=== PATIENT | male | born 1960 | race African-American/Black ===

== ENCOUNTER 2018-07-17 17:06 | Inpatient (IN) | payer OTHER ==
[2018-07-17 21:16] VITALS: BMI 21.1
--- NOTE | 2018-07-17 22:09 | HP ---
COWS - Scale Resting Pulse: 0= NV 80 or Below Sweatin=Flushed/Facial Moisture Restless Observation: 1= Difficult to Sit Still Pupil Size: 1= Pupils >than Normal Bone or Joint Aches: 2= Severe Diffuse Aches Runny Nose/ Eye Tearin= Runny Nose/Eyes GI Upset > 30mins: 2= Nausea/Diarrhea Tremor Observation: 2= Slight Tremor Visible Yawning Observation: 1= 1-2x During Session Anxiety or Irritability: 1=Feels Anxious/Irritable Goose Flesh Skin: 0=Smooth Skin COWS Score: 14 CIWA Score Nausea/Vomitin Muscle Tremors: 2 Anxiety: 2 Agitation: 2 Paroxysmal Sweats: 3 Orientation: 0-Oriented Tacttile Disturbances: 2-Mild Itch/Numbness/Burn Auditory Disturbances: 2-Mild Harshness/Frighten Visual Disturbances: 2-Mild Sensitivity Headache: 2-Mild CIWA-Ar Total Score: 20 - Admission Criteria OASAS Guidelines: Admission for Medically Managed Detox: Requires at least one of the followin. CIWA greater than 12 2. Seizures within the past 24 hours 3. Delirium tremens within the past 24 hours 4. Hallucinations within the past 24 hours 5. Acute intervention needed for co occurring medical disorder 6. Acute intervention needed for co occurring psychiatric disorder 7. Severe withdrawal that cannot be handled at a lower level of care (continued vomiting, continued diarrhea, abnormal vital signs) requiring intravenous medication and/or fluids 8. Admission ROS BHS - HPI Chief Complaint: DEPENDENT ON HEROIN AND ETOH ON 50 MGS. MMTP - LAST DOSE WAS 07/15/2018 Allergies/Adverse Reactions: Allergies Allergy/AdvReac Type Severity Reaction Status Date / Time No Known Allergies Allergy Verified 06/03/14 17:22 History of Present Illness: THE PT. WAS SENT FROM [facility]. FOR ADMISSION TO THE DETOX UNIT Exam Limitations: No Limitations - Ebola screening Have you traveled outside of the country in the last 21 days: No (N) Have you had contact with anyone from an Ebola affected area: No Have you been sick,other than usual withdrawal symptoms: No Do you have a fever: No - Review of Systems Constitutional: See HPI, Loss of Appetite, Malaise EENT: reports: See HPI Respiratory: reports: See HPI Cardiac: reports: See HPI GI: reports: See HPI, Diarrhea, Nausea, Poor Appetite, Indigestion, Abdominal cramping : reports: See HPI Musculoskeletal: reports: See HPI, Muscle Pain, Muscle Weakness Integumentary: reports: See HPI, Sweating Neuro: reports: See HPI, Headache, Tremors, Weakness Endocrine: reports: See HPI Hematology: reports: See HPI Psychiatric: reports: Judgement Intact, Orientated x3, Anxious, Depressed Patient History - Patient Medical History Hx Anemia: No Hx Asthma: Yes (currently on treatment) Hx Chronic Obstructive Pulmonary Disease (COPD): No Hx Cancer: No Hx Cardiac Disorders: No Hx Hypertension: Yes Hx Hypercholesterolemia: No Hx Pacemaker: No HX Cerebrovascular Accident: No Hx Seizures: No Hx Dementia: No Hx Diabetes: No Hx Gastrointestinal Disorders: No Hx Liver Disease: No Hx Genitourinary Disorders: No Hx Sexually Transmitted Disorders: No Hx Renal Disease (ESRD): No Hx Thyroid Disease: No Hx Human Immunodeficiency Virus (HIV): No (NEGATIVE HX) Hx Hepatitis C: No Hx Depression: Yes (AND ANXIETY) Hx Suicide Attempt: No (DENIES) Hx Schizophrenia: No - Patient Surgical History Past Surgical History: Yes Hx Neurologic Surgery: No Hx Cataract Extraction: No Hx Cardiac Surgery: No Hx Lung Surgery: No Hx Breast Surgery: No Hx Breast Biopsy: No Hx Abdominal Surgery: No Hx Appendectomy: No Hx Cholecystectomy: No Hx Genitourinary Surgery: No Hx Section: No Hx Orthopedic Surgery: Yes (L elbow fracture 02/2012) Anesthesia Reaction: No - Smoking Cessation Smoking history: Current every day smoker Have you smoked in the past 12 months: Yes Aproximately how many cigarettes per day: 10 Hx Chewing Tobacco Use: No Initiated information on smoking cessation: Yes 'Breaking Loose' booklet given: 07/17/18 - Substance & Tx. History Hx Alcohol Use: Yes Hx Substance Use: Yes Substance Use Type: Alcohol, Heroin Hx Substance Use Treatment: Yes - Substances abused Alcohol Substance route: Oral Frequency: Daily Amount used: VODKA 3 pints DAILY/BEER 2X16 OZS ON ALT. DAY Age of first use: 15 Date of last use: 07/17/18 Heroin Substance route: Inhalation Frequency: Daily Amount used: 5 bags Age of first use: 17 Date of last use: 07/17/18 Family Disease History - Family Disease History Family Disease History: Heart Disease: Mother ( FROM [place] WAS DEPENDENT ONE ETOH) Admission Physical Exam BHS - Vital Signs Vital Signs: Vital Signs - 24 hr 07/17/18 20:58 Temperature 97.4 F L Pulse Rate 76 Respiratory 18 Rate Blood Pressure 156/83 - Physical General Appearance: Yes: No Apparent Distress, Appropriately Dressed, Thin, Tremorous, Sweating, Anxious HEENTM: Yes: Hearing grossly Normal, Normocephalic, Normal Voice, DINESH, Pharynx Normal Respiratory: Yes: Chest Non-Tender, Lungs Clear, Normal Breath Sounds, No Respiratory Distress, No Accessory Muscle Use Neck: Yes: No masses,lesions,Nodules, Supple, Trachea in good position Breast: Yes: Axillae without masses Cardiology: Yes: Regular Rhythm, Regular Rate, S1, S2 Abdominal: Yes: Normal Bowel Sounds, Non Tender, Soft Musculoskeletal: Yes: full range of Motion, Muscle Pain, Muscle weakness Extremities: Yes: Normal Capillary Refill, Normal Range of Motion, Non-Tender, Tremors, Swelling Neurological: Yes: cashier receptionist II-XII NML intact, Fully Oriented, Alert, Motor Strength 5/5, Normal Response, Depressed Affect Integumentary: Yes: Warm, Moist, Pitting Edema Lymphatic: Yes: Within Normal Limits - Diagnostic (1) Heroin dependence Current Visit: Yes Status: Chronic (2) HTN (hypertension) Current Visit: Yes Status: Acute (3) Asthma Current Visit: Yes Status: Chronic (4) Anxiety and depression Current Visit: Yes Status: Chronic (5) Nicotine dependence Current Visit: No Status: Chronic (6) Methadone maintenance therapy patient Current Visit: Yes Status: Chronic (7) Alcohol dependence Current Visit: No Status: Chronic Qualifiers: Substance use status: uncomplicated Qualified Code(s): F10.20 - Alcohol dependence, uncomplicated (8) Nicotine dependence Current Visit: Yes Status: Acute Qualifiers: Nicotine product type: cigarettes Substance use status: uncomplicated Qualified Code(s): F17.210 - Nicotine dependence, cigarettes, uncomplicated Cleared for Admission [facility] - Detox or Rehab [facility] Level of Care: Medically Managed Detox Regimen/Protocol: Librium Urine Drug Screen - Control Is test valid?: Yes Inpatient Rehab Admission - Rehab Decision to Admit Inpatient rehab admission?: No
[2018-07-17] MEDS ORDERED: MAGNESIUM CITRATE 300 ML BOTTLE PO PRN (22:21)
[2018-07-17] MEDS ORDERED: IBUPROFEN 400 MG TABLET (FP) PO PRN (22:21)
[2018-07-17] MEDS ORDERED: MENTHOL/PHENOL 1 EACH UD MM PRN (22:21)
[2018-07-17] MEDS ORDERED: METHOCARBAMOL 500 MG TABLET PO PRN (22:21)
[2018-07-17] MEDS ORDERED: MELATONIN 5 MG TABLETS PO PRN (22:21)
[2018-07-17] MEDS ORDERED: ACETAMINOPHEN 325 MG TABLET (FP) PO PRN ×2 (22:21)
[2018-07-17] MEDS ORDERED: BISMUTH SUBSALICYLATE 524 MG/30 ML UD PO PRN (22:21)
[2018-07-17] MEDS ORDERED: chlordiazePOXIDE HCL 25 MG CAPSULE PO ONE (22:21)
[2018-07-17] MEDS ORDERED: chlordiazePOXIDE HCL 25 MG CAPSULE PO PRN (22:21)
[2018-07-17] MEDS ORDERED: hydrOXYzine PAMOATE 25 MG CAPSULE (FP) PO PRN (22:21)
[2018-07-17] MEDS ORDERED: MAGNESIUM HYDROX 2400MG/30ML ORAL SUSPENSION 30 ML CUP PO PRN (22:21)
[2018-07-17] MEDS ORDERED: MAG HYDROX/AL HYDROX/SIMETH 30 ML UNIT-DOSE CUP PO PRN (22:21)
[2018-07-17] MEDS ORDERED: ALBUTEROL SO4 8 GM HFA INHALER IH PRN (22:25)
[2018-07-17] MEDS ORDERED: cloNIDine HCL 0.1 MG TABLET PO PRN (22:26)
[2018-07-18] MEDS: chlordiazePOXIDE HCL 25 MG CAPSULE PO SCH ×5 (00:05→22:13)
[2018-07-18] MEDS: HYDROCHLOROTHIAZIDE 25 MG TABLET (FP) PO SCH ×2 (00:05→10:32)
[2018-07-18] MEDS ORDERED: METHADONE HCL 10 MG TABLET PO SCH (07:45)
--- NOTE | 2018-07-18 09:17 | PN ---
S CIWA - CIWA Score Nausea/Vomitin-Mild Nausea/No Vomiting Muscle Tremors: 4-Moderate,w/Arms Extend Anxiety: 4-Mod. Anxious/Guarded Agitation: 4-Moderately Restless Paroxysmal Sweats: 1-Minimal Palms Moist Orientation: 1-Uncertain about Date Tacttile Disturbances: 0-None Auditory Disturbances: 0-None Visual Disturbances: 0-None Headache: 0-None Present CIWA-Ar Total Score: 15 BHS Progress Note (SOAP) Subjective: patient is in the methadone maintenance program at 50 mg po daily last dose 07/14/18 upon admission methadone urine positive as negative to heroin and opiate discuss with the patient who wants to return to methadone program agrees incremental methadone to 50 mg Objective: 07/18/18 10:27 Vital Signs Temperature 99.2 F 07/18/18 09:19 Pulse Rate 97 H 07/18/18 09:19 Respiratory Rate 18 07/18/18 09:19 Blood Pressure 115/68 07/18/18 09:19 O2 Sat by Pulse Oximetry (%) lab pending Assessment: 07/18/18 10:28 alcohol withdrawal sx Plan: continue detox
[2018-07-18] MEDS ORDERED: METHADONE HCL 10 MG TABLET PO ONE (10:00)
[2018-07-18] MEDS: PRENATAL VITAMINS W/ FOLIC ACID TABLET (FP) PO SCH (10:32)
[2018-07-18] MEDS: NICOTINE 14 MG/24 HOURS TOPICAL PATCH TD SCH (10:33)
[2018-07-18 10:47] LABS: HEMATOCRIT 34.8 % (35.4-49); HEMOGLOBIN 11.8 GM/dL (11.7-16.9); MCHC 33.9 g/dl (32.0-35.9); MEAN CELL VOLUME 100.3 fl (80-96); MEAN PLT VOLUME 8.8 fl (7.5-11.1); PLATELET COUNT 141 K/MM3 (134-434); RBC 3.47 M/mm3 (4.00-5.60); WHITE BLOOD COUNT 7.9 K/mm3 (4.0-10.0)
[2018-07-18 10:55] LABS: ALBUMIN 2.6 g/dl (3.4-5.0); ALK PHOS 137 U/L (45-117); ANION GAP 7 MMOL/L (8-16); BILIRUBIN,TOTAL 0.8 mg/dL (0.2-1); BLOOD UREA NITROGEN 14 mg/dL (7-18); CALCIUM 8.7 mg/dL (8.5-10.1); CHLORIDE 97 mmol/L (98-107); CO2 33 mmol/L (21-32); CREATININE 0.7 mg/dL (0.55-1.3); GLUCOSE,RANDOM 120 mg/dL (74-106); POTASSIUM 3.1 mmol/L (3.5-5.1); SGOT/AST 48 U/L (15-37); SGPT/ALT 29 U/L (13-61); SODIUM 137 mmol/L (136-145); TOT PROT 7.2 g/dl (6.4-8.2)
[2018-07-18] MEDS: PENICILLIN V POTASSIUM 500 MG TABLET PO SCH ×2 (13:05→22:13)
[2018-07-18] MEDS ORDERED: PENICILLIN V POTASSIUM 250 MG TABLET PO SCH (14:00)
--- NOTE | 2018-07-18 14:10 | CONSULT ---
[facility] Psychiatric Consult - Data Date of interview: 07/18/18 Admission source: [facility] Identifying data: Readmission to [facility] for this 57 y/o AA male self- referred for detoxification treatment (cocaine, heroin,alcohol). Examined at [address] [place] [address]. Patient is single, a father of one, homeless (care home), unemployed and supported on SSI benefits. Substance Abuse History: Confirmed by the patient in this session. Details in current [facility] report : Smoking history: Current every day smoker. Have you smoked in the past 12 months: Yes. Aproximately how many cigarettes per day: 10. Hx Chewing Tobacco Use: No. Initiated information on smoking cessation: Yes. 'Breaking Loose' booklet given: 07/17/18. - Substance & Tx. History. Hx Alcohol Use: Yes. Hx Substance Use: Yes. Substance Use Type: Alcohol, Heroin. Hx Substance Use Treatment: Yes. - Substances abused. Alcohol. Substance route: Oral. Frequency: Daily. Amount used: VODKA 3 pints DAILY/ BEER 2X16 OZS ON ALT. DAY. Age of first use: 15. Date of last use: 07/17/18. Heroin. Substance route: Inhalation. Frequency: Daily. Amount used: 5 bags. Age of first use: 17. Date of last use: 07/17/18 Medical History: Remarkable for bronchial asthma, arthritis (both hands), chronic lumbar pain, ortosurgery (left elbow) in 2011 and a history of surgery ( cancer of prostate) in 2009. Psychiatric History: Patient admits to a history of two psychiatric hospitalizations (2004 + 2014). First hospitalization occurred in 2004 during incarceration (suicide attempt via overdose with medications) and 2014 at [facility]. Diagnosed with Anxiety Disorder and Bipolar Disorder. Mr Llamas indicates past treatment with celexa and " another medication ". Patient reports total non-adherence for more than three months. He is currently omn methdone maintenance (50 mg/day) at a [facility] program in the [place] and he is scheduled for intake at an [facility] clinic on 07/28/18. No repeat suicide attempt since 2004. Physical/Sexual Abuse/Trauma History: Patient denies history of abuse. Spent 20 years in senior care for various offenses (cumulatively). No longer on parole. Additional Comment: Toxicology not available. Mental Status Exam - Mental Status Exam Alert and Oriented to: Time, Place, Person Cognitive Function: Good Patient Appearance: Well Groomed (short stature) Mood: Nervous, Withdrawn, Anxious Affect: Appropriate, Mood Congruent, Normal Range Patient Behavior: Fatigued, Appropriate, Cooperative Speech Pattern: Clear, Appropriate Voice Loudness: Normal Thought Process: Intact, Goal Oriented Thought Disorder: Not Present Hallucinations: Denies Suicidal Ideation: Denies Homicidal Ideation: Denies Insight/Judgement: Poor Sleep: Well Appetite: Good Muscle strength/Tone: Normal Gait/Station: Normal Psychiatric Findings - Problem List ([place] 1, 2,3) (1) Opioid dependence on agonist therapy Current Visit: Yes Status: Chronic (2) Alcohol dependence Current Visit: Yes Status: Chronic Qualifiers: Substance use status: uncomplicated Qualified Code(s): F10.20 - Alcohol dependence, uncomplicated (3) Cocaine dependence Current Visit: Yes Status: Chronic (4) Nicotine dependence Current Visit: Yes Status: Chronic Qualifiers: Nicotine product type: cigarettes Substance use status: uncomplicated Qualified Code(s): F17.210 - Nicotine dependence, cigarettes, uncomplicated (5) Substance induced mood disorder Current Visit: Yes Status: Chronic - Initial Treatment Plan Initial Treatment Plan: Psychoeducation. Sleep hygiene. Detoxification. Groups. AA/NA meetings. Support. Observation.
[2018-07-18] MEDS ORDERED: hydrOXYzine HCL 25 MG TABLET (FP) PO PRN (18:52)
[2018-07-18] MEDS: THIAMINE HCL 100 MG TABLET (FP) PO SCH (22:13)
[2018-07-19] MEDS: chlordiazePOXIDE HCL 25 MG CAPSULE PO SCH ×3 (05:52→17:20)
[2018-07-19] MEDS ORDERED: METHADONE HCL 10 MG TABLET PO ONE (06:00)
[2018-07-19] MEDS: PENICILLIN V POTASSIUM 500 MG TABLET PO SCH ×3 (07:45→22:03)
[2018-07-19] MEDS: PRENATAL VITAMINS W/ FOLIC ACID TABLET (FP) PO SCH (10:11)
[2018-07-19] MEDS: HYDROCHLOROTHIAZIDE 25 MG TABLET (FP) PO SCH (10:12)
[2018-07-19] MEDS: NICOTINE 14 MG/24 HOURS TOPICAL PATCH TD SCH (10:12)
--- NOTE | 2018-07-19 11:55 | PN ---
[facility] CIWA - CIWA Score Nausea/Vomitin-No Nausea/No Vomiting Muscle Tremors: 4-Moderate,w/Arms Extend Anxiety: 2 Agitation: 3 Paroxysmal Sweats: 1-Minimal Palms Moist Orientation: 0-Oriented Tacttile Disturbances: 0-None Auditory Disturbances: 0-None Visual Disturbances: 0-None Headache: 1-Very Mild CIWA-Ar Total Score: 11 S Progress Note (SOAP) Subjective: right ear feeling better ambulating on hallway able to eat more of meal served Objective: 07/19/18 11:52 Vital Signs Temperature 97.4 F L 07/19/18 09:14 Pulse Rate 85 07/19/18 09:14 Respiratory Rate 18 07/19/18 09:14 Blood Pressure 120/66 07/19/18 09:14 O2 Sat by Pulse Oximetry (%) Laboratory Last Values WBC 7.9 K/mm3 (4.0-10.0) 07/18/18 07:00 RBC 3.47 M/mm3 (4.00-5.60) L 07/18/18 07:00 Hgb 11.8 GM/dL (11.7-16.9) 07/18/18 07:00 Hct 34.8 % (35.4-49) L D 07/18/18 07:00 MCV 100.3 fl (80-96) H 07/18/18 07:00 MCH 34.0 pg (25.7-33.7) H D 07/18/18 07:00 MCHC 33.9 g/dl (32.0-35.9) 07/18/18 07:00 RDW 15.0 % (11.9-15.9) 07/18/18 07:00 Plt Count 141 K/MM3 (134-434) 07/18/18 07:00 MPV 8.8 fl (7.5-11.1) 07/18/18 07:00 Sodium 137 mmol/L (136-145) 07/18/18 07:00 Potassium 3.1 mmol/L (3.5-5.1) L 07/18/18 07:00 Chloride 97 mmol/L (98-107) L 07/18/18 07:00 Carbon Dioxide 33 mmol/L (21-32) H 07/18/18 07:00 Anion Gap 7 MMOL/L (8-16) L 07/18/18 07:00 BUN 14 mg/dL (7-18) 07/18/18 07:00 Creatinine 0.7 mg/dL (0.55-1.3) 07/18/18 07:00 Creat Clearance w eGFR 115.83 (>60) 07/18/18 07:00 Random Glucose 120 mg/dL (74-106) H 07/18/18 07:00 Calcium 8.7 mg/dL (8.5-10.1) 07/18/18 07:00 Total Bilirubin 0.8 mg/dL (0.2-1) 07/18/18 07:00 AST 48 U/L (15-37) H 07/18/18 07:00 ALT 29 U/L (13-61) 07/18/18 07:00 Alkaline Phosphatase 137 U/L (45-117) H 07/18/18 07:00 Total Protein 7.2 g/dl (6.4-8.2) 07/18/18 07:00 Albumin 2.6 g/dl (3.4-5.0) L 07/18/18 07:00 RPR Titer Nonreactive (NONREACTIVE) 07/18/18 07:00 lab noted Assessment: 07/19/18 11:54 alcohol withdrawal sx K+ 3.1 07/19/18 11:55 Plan: continue detox K+ supplement repeat K+
[2018-07-19] MEDS: POTASSIUM CHLORIDE ORAL LIQUID 20 MEQ/15 ML PO SCH ×2 (14:20→17:21)
[2018-07-19] MEDS: chlordiazePOXIDE HCL 10 MG CAPSULE PO SCH (22:03)
[2018-07-19] MEDS: THIAMINE HCL 100 MG TABLET (FP) PO SCH (22:03)
[2018-07-19] MEDS ORDERED: chlordiazePOXIDE HCL 10 MG CAPSULE PO PRN (23:00)
[2018-07-20] MEDS: PENICILLIN V POTASSIUM 500 MG TABLET PO SCH ×3 (05:26→22:33)
[2018-07-20] MEDS ORDERED: METHADONE HCL 40 MG DISPERSABLE TABLET PO ONE (06:00)
[2018-07-20] MEDS: chlordiazePOXIDE HCL 10 MG CAPSULE PO SCH ×3 (06:53→18:16)
[2018-07-20] MEDS: HYDROCHLOROTHIAZIDE 25 MG TABLET (FP) PO SCH (10:04)
[2018-07-20] MEDS: PRENATAL VITAMINS W/ FOLIC ACID TABLET (FP) PO SCH (10:04)
[2018-07-20] MEDS: NICOTINE 14 MG/24 HOURS TOPICAL PATCH TD SCH (10:05)
--- NOTE | 2018-07-20 11:26 | PN ---
S CIWA - CIWA Score Nausea/Vomitin-Mild Nausea/No Vomiting Muscle Tremors: 2 Anxiety: 1-Mildly Anxious Agitation: 2 Paroxysmal Sweats: 1-Minimal Palms Moist Orientation: 0-Oriented Tacttile Disturbances: 0-None Auditory Disturbances: 0-None Visual Disturbances: 0-None Headache: 1-Very Mild CIWA-Ar Total Score: 8 S Progress Note (SOAP) Subjective: feeling better able to tolerate alcohol withdrawal symptoms today Objective: 07/20/18 11:25 Vital Signs Temperature 98.1 F 07/20/18 09:39 Pulse Rate 118 H 07/20/18 09:39 Respiratory Rate 18 07/20/18 09:39 Blood Pressure 99/66 07/20/18 09:39 O2 Sat by Pulse Oximetry (%) Laboratory Last Values WBC 7.9 K/mm3 (4.0-10.0) 07/18/18 07:00 RBC 3.47 M/mm3 (4.00-5.60) L 07/18/18 07:00 Hgb 11.8 GM/dL (11.7-16.9) 07/18/18 07:00 Hct 34.8 % (35.4-49) L D 07/18/18 07:00 MCV 100.3 fl (80-96) H 07/18/18 07:00 MCH 34.0 pg (25.7-33.7) H D 07/18/18 07:00 MCHC 33.9 g/dl (32.0-35.9) 07/18/18 07:00 RDW 15.0 % (11.9-15.9) 07/18/18 07:00 Plt Count 141 K/MM3 (134-434) 07/18/18 07:00 MPV 8.8 fl (7.5-11.1) 07/18/18 07:00 Sodium 137 mmol/L (136-145) 07/18/18 07:00 Potassium 4.1 mmol/L (3.5-5.1) 07/20/18 08:15 Chloride 97 mmol/L (98-107) L 07/18/18 07:00 Carbon Dioxide 33 mmol/L (21-32) H 07/18/18 07:00 Anion Gap 7 MMOL/L (8-16) L 07/18/18 07:00 BUN 14 mg/dL (7-18) 07/18/18 07:00 Creatinine 0.7 mg/dL (0.55-1.3) 07/18/18 07:00 Creat Clearance w eGFR 115.83 (>60) 07/18/18 07:00 Random Glucose 120 mg/dL (74-106) H 07/18/18 07:00 Calcium 8.7 mg/dL (8.5-10.1) 07/18/18 07:00 Total Bilirubin 0.8 mg/dL (0.2-1) 07/18/18 07:00 AST 48 U/L (15-37) H 07/18/18 07:00 ALT 29 U/L (13-61) 07/18/18 07:00 Alkaline Phosphatase 137 U/L (45-117) H 07/18/18 07:00 Total Protein 7.2 g/dl (6.4-8.2) 07/18/18 07:00 Albumin 2.6 g/dl (3.4-5.0) L 07/18/18 07:00 RPR Titer Nonreactive (NONREACTIVE) 07/18/18 07:00 lab noted Assessment: 07/20/18 11:25 mild alcohol withdrawal sx Plan: continue detox
[2018-07-20] MEDS: THIAMINE HCL 100 MG TABLET (FP) PO SCH (22:33)
[2018-07-21] MEDS: chlordiazePOXIDE HCL 10 MG CAPSULE PO SCH ×2 (00:47→10:42)
[2018-07-21] MEDS ORDERED: METHADONE HCL 40 MG DISPERSABLE TABLET ONE (04:01)
[2018-07-21] MEDS ORDERED: METHADONE HCL 10 MG TABLET ONE (04:01)
[2018-07-21] MEDS ORDERED: METHADONE HCL 10 MG TABLET PO ONE (06:00)
[2018-07-21] MEDS ORDERED: METHADONE 40 MG, METHADONE 10 MG PO ONE (06:00)
[2018-07-21] MEDS: PENICILLIN V POTASSIUM 500 MG TABLET PO SCH (06:27)
[2018-07-21 09:21] VITALS: BP 90/58; PULSE 93; TEMP 96.2
[2018-07-21] MEDS: NICOTINE 14 MG/24 HOURS TOPICAL PATCH TD SCH (10:03)
[2018-07-21] MEDS: HYDROCHLOROTHIAZIDE 25 MG TABLET (FP) PO SCH (10:04)
[2018-07-21] MEDS: PRENATAL VITAMINS W/ FOLIC ACID TABLET (FP) PO SCH (10:04)
--- NOTE | 2018-07-21 19:10 | DS ---
[facility] Detox Discharge Summary Admission Date: 07/17/18 Discharge Date: 07/21/18 - History Present History: Alcohol Dependence, Opioid Dependence Additional Comments: PATIENT RETURNING TO [facility] ([place], [place]) FOR AFTERCARE. PATIENT REFERRED TO [facility] ([place], [place]) FOR HOUSING. PRESCRIPTION FOR ANTIBIOTIC (PENICILLIN V-K) PRESCRIBED WHILE PATIENT WAS ADMITTED FOR DETOX FOR TREATMENT OF EAR INFECTION SENT TO [facility] ([place], [place]) FOR PATIENT TO BABY DOCTOR FOR FOLLOW-UP AFTERCARE. PATIENT ADVISED TO COMPLETE FULL COURSE OF ANTIBIOTIC AND TO FOLLOW-UP WITH CALENDER OPERATOR HELPER WHEN POSSIBLE FOR FURTHER MEDICAL FOLLOW-UP EVALUATION OF EAR INFECTION AFTER DISCHARGE FROM DETOX UNIT. PATIENT VERBALIZED UNDERSTANDING OF ALL RECOMMENDATIONS. PATIENT REPORTS THAT HE CURRENTLY HAS ADEQUATE SUPPLIES OF ALL OUTPATIENT PRESCRIBED MEDICATIONS IN HIS BELONGINGS. PATIENT WAS DISCHARGED FROM DETOX UNIT IN STABLE MEDICAL CONDITION. Pertinent Past History: Asthma, HTN, Depression, Anxiety, Nicotine Dependence, M.M.T.P., Nicotine Dependence. - Physical Exam Results Vital Signs: Vital Signs Temperature 96.2 F L 07/21/18 09:18 Pulse Rate 93 H 07/21/18 09:18 Respiratory Rate 20 07/21/18 09:18 Blood Pressure 90/58 L 07/21/18 09:18 O2 Sat by Pulse Oximetry (%) Pertinent Admission Physical Exam Findings: WITHDRAWAL SYMPTOMS. Laboratory Tests 07/18/18 07/18/18 07/18/18 07:00 07:00 07:00 WBC 7.9 RBC 3.47 L Hgb 11.8 Hct 34.8 L D MCV 100.3 H MCH 34.0 H D MCHC 33.9 RDW 15.0 Plt Count 141 MPV 8.8 Sodium 137 Potassium 3.1 L Chloride 97 L Carbon Dioxide 33 H Anion Gap 7 L BUN 14 Creatinine 0.7 Creat Clearance w eGFR 115.83 Random Glucose 120 H Calcium 8.7 Total Bilirubin 0.8 AST 48 H ALT 29 Alkaline Phosphatase 137 H Total Protein 7.2 Albumin 2.6 L RPR Titer Nonreactive 07/20/18 08:15 WBC RBC Hgb Hct MCV MCH MCHC RDW Plt Count MPV Sodium Potassium 4.1 Chloride Carbon Dioxide Anion Gap BUN Creatinine Creat Clearance w eGFR Random Glucose Calcium Total Bilirubin AST ALT Alkaline Phosphatase Total Protein Albumin RPR Titer LABS NOTED. - Treatment Hospital Course: Detox Protocol Followed, Detoxed Safely, Responded well, Discharged Condition Good Patient has Accepted a Rehab Referral to: PT. RETURNING TO [facility] ([place], [place]). - Medication Discharge Medications: Ambulatory Orders Salmeterol/Fluticasone [Advair 250Mcg/50Mcg -] 1 inh PO BID 04/28/12 Albuterol Sulfate Inhaler - [Ventolin HFA Inhaler -] 2 inh IH Q4H PRN #1 canister 06/14/14 Budesonide/Formeterol Fumarate [SYMBICORT 80/4.5mcg -] 1 inh IH BID #1 canister 06/14/14 Methyl Salicylate/Menthol Oint [Analgesic [place] -] 1 applic TP BID #1 tu Penicillin V Potassium [Pen Vee K -] 250 mg PO TID 5 Days #15 tablet 07/21/18 - Diagnosis (1) Anxiety and depression Status: Acute (2) HTN (hypertension) Status: Chronic Qualifiers: Hypertension type: unspecified Qualified Code(s): I10 - Essential (primary ) hypertension (3) Alcohol dependence Status: Chronic Qualifiers: Substance use status: uncomplicated Qualified Code(s): F10.20 - Alcohol dependence, uncomplicated (4) Asthma Status: Chronic Qualifiers: Asthma severity: unspecified severity Asthma persistence: unspecified Asthma complication type: uncomplicated Qualified Code(s): J45.909 - Unspecified asthma, uncomplicated (5) Heroin dependence Status: Chronic (6) Methadone maintenance therapy patient Status: Chronic (7) Nicotine dependence Status: Chronic - AMA Did Patient Leave Against Medical Advice: No
== END 2018-07-21 10:05 | disposition home or self-care (01) | DRG 773 ==
LOC: YASAS 17:06 → Y3N 23:09
PROVIDERS: ADMIT Surgery; ATTEND Surgery
PROC: HZ2ZZZZ Detoxification Services for Substance Abuse Treatment (ICD-10-PCS; principal; 2018-07-17)
DX: F10.230 Alcohol dependence with withdrawal, uncomplicated (principal); F11.20 Opioid dependence, uncomplicated; F14.20 Cocaine dependence, uncomplicated; F17.210 Nicotine dependence, cigarettes, uncomplicated; F41.9 Anxiety disorder, unspecified; F32.9 Major depressive disorder, single episode, unspecified; F19.24 Other psychoactive substance dependence with psychoactive substance-induced mood disorder; I10 Essential (primary) hypertension; J45.909 Unspecified asthma, uncomplicated; Z85.46 Personal history of malignant neoplasm of prostate; M54.5 Low back pain; G89.29 Other chronic pain; M13.842 Other specified arthritis, left hand; M13.841 Other specified arthritis, right hand; Z59.0 Homelessness
CPT/HCPCS: 36415; 80053; 84132; 85027; 86593

== ENCOUNTER 2018-08-17 08:17 | Inpatient (IN) | payer OTHER ==
[2018-08-17 08:48] VITALS: BMI 22.8
--- NOTE | 2018-08-17 09:36 | HP ---
CIWA Score Nausea/Vomitin-No Nausea/No Vomiting Muscle Tremors: 3 Anxiety: 3 Agitation: 0-Normal Activity Paroxysmal Sweats: 2 Orientation: 1-Uncertain about Date Tacttile Disturbances: 2-Mild Itch/Numbness/Burn Auditory Disturbances: 0-None Visual Disturbances: 3-Moderate Sensitivity Headache: 2-Mild CIWA-Ar Total Score: 16 - Admission Criteria OASAS Guidelines: Admission for Medically Managed Detox: Requires at least one of the followin. CIWA greater than 12 2. Seizures within the past 24 hours 3. Delirium tremens within the past 24 hours 4. Hallucinations within the past 24 hours 5. Acute intervention needed for co occurring medical disorder 6. Acute intervention needed for co occurring psychiatric disorder 7. Severe withdrawal that cannot be handled at a lower level of care (continued vomiting, continued diarrhea, abnormal vital signs) requiring intravenous medication and/or fluids 8. Admission ROS S - HPI Allergies/Adverse Reactions: Allergies Allergy/AdvReac Type Severity Reaction Status Date / Time No Known Allergies Allergy Verified 08/17/18 08:50 History of Present Illness: pt here requesting detox from etoh use , reports 1 -2 pints vodka/day , relapse after d/c from this facility , progressive since 1 yr ago after loss of family and housing , currently starts drinking upon awakening , current symptoms as above , current DANIEL 0.197 latest use this morning prior to arrival at this facility" they picked me up at the liquor store " . reports participation in MMTP x 2 years , current daily dose 50 mg , heroin use 4-5 bags /day denies IVDU , heroin use 2 years prior to program admission Reports recent hospitalization [facility] 2/2 intoxication " I passed out " taken by ambulance thinks " a few days ago " does not recall specific date . tobacco : 1/2 ppd . Pt is poor historian 2/2 intoxication . PMHX : asthma, HTN PShx : denies PSych : bipolar d/o , suicide attempts x 2 by taking pills , most recently 2004 , denies current SI / HI . Exam Limitations: Clinical Condition, Intoxication - Ebola screening Have you traveled outside of the country in the last 21 days: No (N) Have you had contact with anyone from an Ebola affected area: No Do you have a fever: No - Review of Systems Constitutional: See HPI EENT: reports: Other (glasses) Respiratory: reports: No Symptoms reported Cardiac: reports: No Symptoms Reported GI: reports: See HPI : reports: No Symptoms Reported Musculoskeletal: reports: Muscle Pain, Muscle Weakness (mitchel LE " my legs hurt ") Integumentary: reports: No Symptoms Reported Neuro: reports: See HPI Endocrine: reports: No Symptoms Reported Psychiatric: reports: Orientated x3, Depressed, Disorientated Patient History - Patient Medical History Hx Anemia: No Hx Asthma: Yes Hx Chronic Obstructive Pulmonary Disease (COPD): No Hx Cancer: No Hx Cardiac Disorders: No Hx Hypertension: Yes Hx Hypercholesterolemia: No Hx Pacemaker: No HX Cerebrovascular Accident: No Hx Seizures: No Hx Dementia: No Hx Diabetes: No Hx Gastrointestinal Disorders: No Hx Liver Disease: No Hx Genitourinary Disorders: No Hx Sexually Transmitted Disorders: No Hx Renal Disease (ESRD): No Hx Thyroid Disease: No Hx Human Immunodeficiency Virus (HIV): No (NEGATIVE HX) Hx Hepatitis C: No Hx Depression: Yes Hx Suicide Attempt: No (DENIES) Hx Schizophrenia: No - Patient Surgical History Past Surgical History: Yes Hx Neurologic Surgery: No Hx Cataract Extraction: No Hx Cardiac Surgery: No Hx Lung Surgery: No Hx Breast Surgery: No Hx Breast Biopsy: No Hx Abdominal Surgery: No Hx Appendectomy: No Hx Cholecystectomy: No Hx Genitourinary Surgery: No Hx Section: No Hx Orthopedic Surgery: Yes (L elbow fracture 02/2012) Anesthesia Reaction: No - Smoking Cessation Smoking history: Current every day smoker Have you smoked in the past 12 months: Yes Aproximately how many cigarettes per day: 10 Hx Chewing Tobacco Use: No Initiated information on smoking cessation: No - Substances abused Alcohol Substance route: Oral Frequency: Daily Amount used: VODKA 3 pints DAILY/BEER 3X16 OZS Age of first use: 15 Date of last use: 07/17/18 Heroin Substance route: Inhalation Frequency: Daily Amount used: 4bags Age of first use: 15 Date of last use: 08/17/18 Family Disease History - Family Disease History Family Disease History: Heart Disease: Mother ( FROM MS WAS DEPENDENT ONE ETOH) Admission Physical Exam B[facility] - Physical General Appearance: Yes: Disheveled, Moderate Distress, Alcohol on Breath, Intoxicated HEENTM: Yes: EOMI, Hearing grossly Normal, Normocephalic, Normal Voice, Scleral Ictenus R, Scleral Ictenus L, Other (poor dentition mucosae dry erythema lips) Respiratory: Yes: Chest Non-Tender, No Respiratory Distress, No Accessory Muscle Use, Wheezing Neck: Yes: No masses,lesions,Nodules, Trachea in good position Cardiology: Yes: Regular Rhythm, Regular Rate, S1, S2, Tachycardia Abdominal: Yes: Non Tender, Soft Back: Yes: Normal Inspection Musculoskeletal: Yes: Joint Stiffness (unsteady gait , using cane for stability and balance " my legs hurt " , reports chronic pain left elbow deformity reports frx > 10 years ago OA deformities mitchel hands , right 1st MCP), Other Extremities: Yes: Non-Tender, Tremors Neurological: Yes: Alert, Motor Strength 5/5 Integumentary: Yes: Warm, Other (superficial abrasions left knee , left medial wrist) - Diagnostic (1) Alcohol dependence Current Visit: Yes Status: Acute Qualifiers: Substance use status: in withdrawal (2) Nicotine dependence Current Visit: Yes Status: Chronic Qualifiers: Nicotine product type: cigarettes Substance use status: uncomplicated Qualified Code(s): F17.210 - Nicotine dependence, cigarettes, uncomplicated (3) Opioid dependence on agonist therapy Current Visit: Yes Status: Chronic Breathalyzer - Breathalyzer Breathalyzer: 0.197 Urine Drug Screen - Test Device Lot number: [id number] Expiration date: 01/09/20 - Control Is test valid?: Yes - Results Drug screen NEGATIVE: No Urine drug screen results: MOP-Opiates, OXY-Oxycodone, MTD-Methadone, BZO- Benzodiazepines Inpatient Rehab Admission - Rehab Decision to Admit Inpatient rehab admission?: No
[2018-08-17] MEDS ORDERED: MAGNESIUM CITRATE 300 ML BOTTLE PO PRN (09:44)
[2018-08-17] MEDS ORDERED: hydrOXYzine PAMOATE 25 MG CAPSULE (FP) PO PRN (09:44)
[2018-08-17] MEDS ORDERED: MAGNESIUM HYDROX 2400MG/30ML ORAL SUSPENSION 30 ML CUP PO PRN (09:44)
[2018-08-17] MEDS ORDERED: MAG HYDROX/AL HYDROX/SIMETH 30 ML UNIT-DOSE CUP PO PRN (09:44)
[2018-08-17] MEDS ORDERED: NICOTINE POLACRILEX 2 MG GUM BUC PRN (09:44)
[2018-08-17] MEDS ORDERED: MELATONIN 5 MG TABLETS PO PRN (09:44)
[2018-08-17] MEDS ORDERED: MENTHOL/PHENOL 1 EACH UD MM PRN (09:44)
[2018-08-17] MEDS ORDERED: IBUPROFEN 400 MG TABLET (FP) PO PRN (09:44)
[2018-08-17] MEDS ORDERED: DICYCLOMINE HCL 10 MG CAPSULE PO PRN (09:44)
[2018-08-17] MEDS ORDERED: ALBUTEROL SO4 0.083% IH SOL 2.5 MG/3 ML VIAL.NEB. NEB PRN (09:45)
[2018-08-17] MEDS: PRENATAL VITAMINS W/ FOLIC ACID TABLET (FP) PO SCH (10:48)
[2018-08-17] MEDS ORDERED: METHADONE HCL 40 MG DISPERSABLE TABLET PO ONE (11:01)
[2018-08-17] MEDS: diazePAM 5 MG TABLET PO SCH ×2 (13:50→22:14)
[2018-08-17 17:48] LABS: HEMATOCRIT 35.7 % (35.4-49); HEMOGLOBIN 11.5 GM/dL (11.7-16.9); MCH 32.2 pg (25.7-33.7); MCHC 32.3 g/dl (32.0-35.9); MEAN CELL VOLUME 99.9 fl (80-96); MEAN PLT VOLUME 9.3 fl (7.5-11.1); PLATELET COUNT 113 K/MM3 (134-434); RBC 3.58 M/mm3 (4.00-5.60); RDW 14.6 % (11.9-15.9); WHITE BLOOD COUNT 4.9 K/mm3 (4.0-10.0)
[2018-08-17 17:58] LABS: BILIRUBIN,TOTAL 0.6 mg/dL (0.2-1); CALCIUM 8.2 mg/dL (8.5-10.1); CREATININE 0.5 mg/dL (0.55-1.3); POTASSIUM 3.4 mmol/L (3.5-5.1); TOT PROT 7.2 g/dl (6.4-8.2)
[2018-08-17] MEDS: THIAMINE HCL 100 MG TABLET (FP) PO SCH (22:14)
[2018-08-18] MEDS ORDERED: METHADONE HCL 10 MG TABLET ONE (05:40)
[2018-08-18] MEDS ORDERED: METHADONE HCL 40 MG DISPERSABLE TABLET ONE (05:40)
[2018-08-18] MEDS ORDERED: METHADONE HCL 40 MG DISPERSABLE TABLET PO SCH (06:00)
[2018-08-18] MEDS: METHADONE 40 MG, METHADONE 10 MG PO SCH (06:04)
[2018-08-18] MEDS: diazePAM 5 MG TABLET PO SCH ×3 (06:05→22:19)
--- NOTE | 2018-08-18 09:46 | PN ---
S CIWA - CIWA Score Nausea/Vomitin Muscle Tremors: 3 Anxiety: 3 Agitation: 2 Paroxysmal Sweats: 1-Minimal Palms Moist Orientation: 0-Oriented Tacttile Disturbances: 1-Very Mild Itch/Numbness Auditory Disturbances: 1-Very Mild Visual Disturbances: 0-None Headache: 2-Mild CIWA-Ar Total Score: 15 BHS Progress Note (SOAP) Subjective: alert,irritable,anxious,interrupted sleep,tremor Objective: 08/18/18 09:44 Vital Signs Temperature 98.1 F 08/18/18 09:42 Pulse Rate 72 08/18/18 09:42 Respiratory Rate 18 08/18/18 09:42 Blood Pressure 150/75 08/18/18 09:42 O2 Sat by Pulse Oximetry (%) Laboratory Last Values WBC 4.9 K/mm3 (4.0-10.0) 08/17/18 09:50 RBC 3.58 M/mm3 (4.00-5.60) L 08/17/18 09:50 Hgb 11.5 GM/dL (11.7-16.9) L 08/17/18 09:50 Hct 35.7 % (35.4-49) 08/17/18 09:50 MCV 99.9 fl (80-96) H 08/17/18 09:50 MCH 32.2 pg (25.7-33.7) 08/17/18 09:50 MCHC 32.3 g/dl (32.0-35.9) 08/17/18 09:50 RDW 14.6 % (11.9-15.9) 08/17/18 09:50 Plt Count 113 K/MM3 (134-434) L 08/17/18 09:50 MPV 9.3 fl (7.5-11.1) 08/17/18 09:50 Sodium 142 mmol/L (136-145) 08/17/18 09:50 Potassium 3.4 mmol/L (3.5-5.1) L 08/17/18 09:50 Chloride 107 mmol/L (98-107) 08/17/18 09:50 Carbon Dioxide 30 mmol/L (21-32) 08/17/18 09:50 Anion Gap 6 MMOL/L (8-16) L 08/17/18 09:50 BUN 12 mg/dL (7-18) 08/17/18 09:50 Creatinine 0.5 mg/dL (0.55-1.3) L 08/17/18 09:50 Est GFR (CKD-EPI)AfAm 138.44 08/17/18 09:50 Est GFR (CKD-EPI)NonAf 119.45 08/17/18 09:50 Random Glucose 92 mg/dL (74-106) 08/17/18 09:50 Calcium 8.2 mg/dL (8.5-10.1) L 08/17/18 09:50 Total Bilirubin 0.6 mg/dL (0.2-1) 08/17/18 09:50 AST 78 U/L (15-37) H 08/17/18 09:50 ALT 36 U/L (13-61) 08/17/18 09:50 Alkaline Phosphatase 129 U/L (45-117) H 08/17/18 09:50 Total Protein 7.2 g/dl (6.4-8.2) 08/17/18 09:50 Albumin 3.0 g/dl (3.4-5.0) L 08/17/18 09:50 Assessment: 08/18/18 09:45 withdrawal symptom Plan: continue detox,hypokalemia k is 3.4,k dur 20 meq po daily for 3 days
[2018-08-18] MEDS: PRENATAL VITAMINS W/ FOLIC ACID TABLET (FP) PO SCH (10:18)
[2018-08-18] MEDS: POTASSIUM CHLORIDE TABS 20 MEQ TABLET.ER (FP) PO SCH (10:18)
--- NOTE | 2018-08-18 10:40 | CONSULT ---
[facility] Psychiatric Consult - Data Date of interview: 08/18/18 Admission source: Self-referred Identifying data: Mr Llamas is a 57 years old single Black male, father of a 29 years old daughter, unemployed receiving SSI, homeless seeking detox treatment for alcohol and opioid Substance Abuse History: Reports history of alcohol and heroin use. Refer to addiction counselor's summary for further information Medical History: Significant for bronchial asthma, hyprtension, arthritis (both hands), chronic lumbar pain, ortosurgery for fracture left elbow in 2011 and a history of surgery for prostate cancer in 2009. Patient is on methadone 50 mg/ day. Smokes 10 cigaretees daily Psychiatric History: Patient is a versatile, inconsistent historian. He reports that his first psychiaric contact took place after while serving time in correction. He was [facility] to [facility] after learning that he had prostate cancer. He was diagnosed with Bipolar Disorder and started on medications. Reports 3 subsequent psychiatric hospitalizations. Second hospitalization was again in a forensic facility while serving time and the last two at [facility] in 2014 and 2018. Besides Celexa, he has no recollection of medications he has been prescribed. Reports being off medications for 5 months. 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 He said that he was referred by the program to see a psychiatrist nearby but he missed that appoointment on 08/07/18. No source available to verify any prescribed psychotropic medication. Reports history of 3 previous suicidal attempts by overdose on pills. At present denies experiencing psychotic, manic symptoms, S/H ideations. However, reports feeling depressed and sleeping poorly Physical/Sexual Abuse/Trauma History: Patient denies history of abuse. Served 20 years in correction for various offenses (cumulatively). No longer on parole. Mental Status Exam - Mental Status Exam Alert and Oriented to: Time, Place, Person Cognitive Function: Fair Patient Appearance: Well Groomed Mood: Depressed Affect: Appropriate Patient Behavior: Cooperative Speech Pattern: Clear Voice Loudness: Normal Thought Process: Intact, Goal Oriented Thought Disorder: Not Present Hallucinations: Denies Suicidal Ideation: Denies Homicidal Ideation: Denies Insight/Judgement: Poor Sleep: Poorly Appetite: Poor Muscle strength/Tone: Normal Gait/Station: Other (uses a cane as ambulatory aid) Psychiatric Findings - Problem List ([place] 1, 2,3) (1) Mood disorder Current Visit: Yes Status: Chronic (2) Bipolar disorder Current Visit: Yes Status: Ruled-out (3) Alcohol dependence with uncomplicated withdrawal Current Visit: Yes Status: Acute (4) Opioid dependence on agonist therapy Current Visit: Yes Status: Chronic (5) Nicotine dependence Current Visit: Yes Status: Chronic Qualifiers: Nicotine product type: cigarettes Substance use status: uncomplicated Qualified Code(s): F17.210 - Nicotine dependence, cigarettes, uncomplicated (6) Asthma Current Visit: No Status: Chronic Qualifiers: Asthma severity: unspecified severity Asthma persistence: unspecified Asthma complication type: uncomplicated Qualified Code(s): J45.909 - Unspecified asthma, uncomplicated (7) HTN (hypertension) Current Visit: No Status: Chronic Qualifiers: Hypertension type: unspecified Qualified Code(s): I10 - Essential (primary ) hypertension (8) chronic pain left elbow s/p fracture Current Visit: No Status: Chronic - Initial Treatment Plan Initial Treatment Plan: Continue inpatient detoxification
[2018-08-18] MEDS: THIAMINE HCL 100 MG TABLET (FP) PO SCH (22:19)
[2018-08-19] MEDS ORDERED: METHADONE HCL 10 MG TABLET ONE (05:09)
[2018-08-19] MEDS ORDERED: METHADONE HCL 40 MG DISPERSABLE TABLET ONE (05:09)
[2018-08-19] MEDS: METHADONE 40 MG, METHADONE 10 MG PO SCH (05:50)
[2018-08-19] MEDS ORDERED: diazePAM 5 MG TABLET PO ONE (06:00)
[2018-08-19] MEDS: diazePAM 5 MG TABLET PO PRN ×2 (10:29→22:53)
[2018-08-19] MEDS: PRENATAL VITAMINS W/ FOLIC ACID TABLET (FP) PO SCH (10:29)
[2018-08-19] MEDS: POTASSIUM CHLORIDE TABS 20 MEQ TABLET.ER (FP) PO SCH (10:29)
--- NOTE | 2018-08-19 10:39 | PN ---
[facility] CIWA - CIWA Score Nausea/Vomitin-No Nausea/No Vomiting Muscle Tremors: 3 Anxiety: 2 Agitation: 1-Slight > Activity Paroxysmal Sweats: 4-Forehead w/Sweat Beads Orientation: 0-Oriented Tacttile Disturbances: 1-Very Mild Itch/Numbness Auditory Disturbances: 0-None Visual Disturbances: 0-None Headache: 1-Very Mild CIWA-Ar Total Score: 12 BHS Progress Note (SOAP) Subjective: c/o irritability, anxiety,interrupted sleep, headache, and tremor. Objective: 08/19/18 10:37 Vital Signs 08/19/18 08/19/18 07:56 09:50 Temperature 96.4 F L Pulse Rate 109 H 88 Respiratory 20 18 Rate Blood Pressure 106/82 117/65 Assessment: 08/19/18 10:37 AOX3, in no respiratory distress Ambulating in the unit. Withdrawal symptoms persist. Plan: continue detox increase fluids.
[2018-08-19] MEDS: THIAMINE HCL 100 MG TABLET (FP) PO SCH (22:54)
[2018-08-20] MEDS ORDERED: METHADONE HCL 10 MG TABLET ONE (04:22)
[2018-08-20] MEDS ORDERED: METHADONE HCL 40 MG DISPERSABLE TABLET ONE (04:22)
[2018-08-20] MEDS: METHADONE 40 MG, METHADONE 10 MG PO SCH (05:51)
[2018-08-20] MEDS: POTASSIUM CHLORIDE TABS 20 MEQ TABLET.ER (FP) PO SCH (09:51)
[2018-08-20] MEDS: PRENATAL VITAMINS W/ FOLIC ACID TABLET (FP) PO SCH (09:51)
[2018-08-20 11:02] VITALS: BP 126/90; PULSE 92; TEMP 97.5
[2018-08-20] MEDS ORDERED: ALBUTEROL SO4 8 GM HFA INHALER IH PRN (11:23)
--- NOTE | 2018-08-20 13:28 | DS ---
[facility] Detox Discharge Summary Admission Date: 08/17/18 - History Present History: Alcohol Dependence, Opioid Dependence, MMTP Additional Comments: Patient completed detox successfully and refused rehab. Patient is A/A/Ox3, in nad, vss, ambulatory. Patient discharged in stable condition and instructed to follow up with his PCP within 1-2 weeks. Pertinent Past History: Asthma HTN Nicotine dependence Alcohol dependence Opioid dependence on agonist Thrombocytopenia Depression - Physical Exam Results Vital Signs: Vital Signs Temperature 97.5 F L 08/20/18 11:02 Pulse Rate 92 H 08/20/18 11:02 Respiratory Rate 18 08/20/18 11:02 Blood Pressure 126/90 08/20/18 11:02 O2 Sat by Pulse Oximetry (%) Pertinent Admission Physical Exam Findings: Withdrawal symptoms Laboratory Tests 08/17/18 08/17/18 08/17/18 09:50 09:50 09:50 WBC 4.9 RBC 3.58 L Hgb 11.5 L Hct 35.7 MCV 99.9 H MCH 32.2 MCHC 32.3 RDW 14.6 Plt Count 113 L MPV 9.3 Sodium 142 Potassium 3.4 L Chloride 107 Carbon Dioxide 30 Anion Gap 6 L BUN 12 Creatinine 0.5 L Est GFR (CKD-EPI)AfAm 138.44 Est GFR (CKD-EPI)NonAf 119.45 Random Glucose 92 Calcium 8.2 L Total Bilirubin 0.6 AST 78 H ALT 36 Alkaline Phosphatase 129 H Total Protein 7.2 Albumin 3.0 L RPR Titer Nonreactive Labs reviewed: K 3.4 (replenished), plt 113 most likely r/t alcoholism; patient instructed to follow up with PCP for monitoring - Treatment Hospital Course: Detox Protocol Followed, Detoxed Safely, Responded well, Discharged Condition Good - Medication Discharge Medications: Ambulatory Orders Albuterol Sulfate Inhaler - [Ventolin HFA Inhaler -] 2 inh IH Q4H PRN #1 canister 06/14/14 Methadone [Dolophine -] 50 mg PO DAILY 08/17/18 - Diagnosis (1) Thrombocytopenia Status: Acute (2) Alcohol dependence with uncomplicated withdrawal Status: Acute (3) Anxiety and depression Status: Chronic (4) Asthma Status: Chronic Qualifiers: Asthma severity: unspecified severity Asthma persistence: unspecified Asthma complication type: uncomplicated Qualified Code(s): J45.909 - Unspecified asthma, uncomplicated (5) HTN (hypertension) Status: Chronic Qualifiers: Hypertension type: unspecified Qualified Code(s): I10 - Essential (primary ) hypertension (6) Nicotine dependence Status: Chronic Qualifiers: Nicotine product type: cigarettes Substance use status: uncomplicated Qualified Code(s): F17.210 - Nicotine dependence, cigarettes, uncomplicated (7) Opioid dependence on agonist therapy Status: Chronic (8) Hypokalemia Status: Acute - AMA Did Patient Leave Against Medical Advice: No (Instructed to follow up with PCP within 1-2 weeks)
== END 2018-08-20 11:30 | disposition home or self-care (01) | DRG 773 ==
LOC: YASAS 08:17 → Y6N 10:02
PROVIDERS: ADMIT Surgery; ATTEND Surgery
PROC: HZ2ZZZZ Detoxification Services for Substance Abuse Treatment (ICD-10-PCS; principal; 2018-08-17)
DX: F10.230 Alcohol dependence with withdrawal, uncomplicated (principal); F10.220 Alcohol dependence with intoxication, uncomplicated; F11.20 Opioid dependence, uncomplicated; F17.210 Nicotine dependence, cigarettes, uncomplicated; F41.9 Anxiety disorder, unspecified; F32.9 Major depressive disorder, single episode, unspecified; F39 Unspecified mood [affective] disorder; F31.9 Bipolar disorder, unspecified; I10 Essential (primary) hypertension; R00.0 Tachycardia, unspecified; J45.909 Unspecified asthma, uncomplicated; E87.6 Hypokalemia; D69.6 Thrombocytopenia, unspecified; M54.5 Low back pain; M25.522 Pain in left elbow; G89.29 Other chronic pain; M13.842 Other specified arthritis, left hand; M13.841 Other specified arthritis, right hand; Z85.46 Personal history of malignant neoplasm of prostate; Z91.5 Personal history of self-harm; Z59.0 Homelessness
CPT/HCPCS: 36415; 80053; 85027; 86593; H0004

== ENCOUNTER 2022-02-05 21:01 | Inpatient (IN) | payer OTHER ==
[2022-02-05] MEDS ORDERED: SODIUM CHLORIDE 1,769 ML IV ONE (21:22)
[2022-02-05] MEDS ORDERED: VANCOMYCIN 1 GM in D5W (PRE-DOCKED) 1,000 MG/250 ML IVPB ONE (21:22)
[2022-02-05] MEDS ORDERED: ACETAMINOPHEN 1000 MG/100 ML BAG IVPB ONE (21:22)
[2022-02-05] MEDS ORDERED: PIPERACILLIN/TAZOB 4.5 GM 4.5 GM in DEXTROSE 5%-WATER 100 ML IVPB ONE (21:22)
[2022-02-05 22:29] LABS: VENOUS BASE EXCESS 1.2 mmol/L (-2-2); VENOUS O2 SATURATION 90.9 % (70-80); VENOUS PCO2 30.6 mmHg (38-52); VENOUS PH 7.509 (7.310-7.410)
[2022-02-05] MEDS ORDERED: ACETAMINOPHEN INJECTION 100 ML IVPB ONE (22:41)
[2022-02-05] MEDS ORDERED: VANCOMYCIN/WATER FOR INJ (PEG) 1,000 MG/200 ML BAG IVPB ONE (22:41)
[2022-02-05] MEDS ORDERED: PIPERACILLIN/TAZOB 4.5 GM 4.5 GM/100 ML BAG IVPB ONE (22:41)
[2022-02-05] MEDS ORDERED: ALBUTEROL SO4 2.5/IPRATROPIUM 0.5 INH SOL 3 ML VIAL.NEB. NEB ONE (22:41)
[2022-02-05 22:48] LABS: HEMATOCRIT 25.8 % (35.4-49); HEMOGLOBIN 8.6 GM/dL (11.7-16.9); MCH 32.4 pg (25.7-33.7); MCHC 33.3 g/dl (32.0-35.9); MEAN CELL VOLUME 97.2 fl (80-96); PLATELET COUNT 212 10^3/uL (134-434); RBC 2.65 M/mm3 (4.00-5.60); RDW 14.9 % (11.9-15.9); WHITE BLOOD COUNT 21.4 K/mm3 (4.0-10.0)
[2022-02-05 22:52] LABS: INR 1.4 (0.83-1.09); PROTHROMBIN TIME (PATIENT) 16.1 SEC (9.7-13.0)
[2022-02-05 22:55] LABS: ACTIVATED PTT 30.4 SECONDS (25.2-36.5)
[2022-02-05 22:57] LABS: BLOOD UREA NITROGEN 14.9 mg/dL (7-18); CALCIUM 8.4 mg/dL (8.5-10.1)
[2022-02-05 22:59] LABS: ALBUMIN 2.2 g/dl (3.4-5.0)
[2022-02-05 23:02] LABS: CREATININE 0.7 mg/dL (0.55-1.3)
[2022-02-05 23:03] LABS: BILIRUBIN,TOTAL 0.7 mg/dL (0.2-1); TOT PROT 7.4 g/dl (6.4-8.2)
[2022-02-05] MEDS: ALBUTEROL SO4 2.5/IPRATROPIUM 0.5 INH SOL 3 ML VIAL.NEB. NEB SCH ×5 (23:27→23:28)
[2022-02-05 23:45] LABS: ANISOCYTOSIS 0; MACROCYTOSIS 0
[2022-02-06 00:57] LABS: PH,URINE 7.5 (5.0-8.0); URINE APPEARANCE CLEAR; URINE BILIRUBIN NEGATIVE (NEGATIVE); URINE COLOR YELLOW; URINE GLUCOSE (UA) NEGATIVE (NEGATIVE); URINE KETONE NEGATIVE (NEGATIVE); URINE LEUK ESTERASE NEGATIVE (NEGATIVE); URINE NITRITE NEGATIVE (NEGATIVE); URINE PROTEIN NEGATIVE (NEGATIVE)
[2022-02-06 01:06] LABS: COCAINE, UR NEGATIVE (NEGATIVE); OPIATES, URI NEGATIVE (NEGATIVE); URINE BARBITURATES NEGATIVE (NEGATIVE)
[2022-02-06 01:07] LABS: METHADONE, UR NEGATIVE (NEGATIVE); PHENCYCLIDINE,URINE NEGATIVE (NEGATIVE); URINE BENZODIAZEPINES NEGATIVE (NEGATIVE)
[2022-02-06 01:13] LABS: URINE AMPHETAMINES NEGATIVE (NEGATIVE)
[2022-02-06] MEDS ORDERED: ACETAMINOPHEN 1000 MG/100 ML BAG IVPB SCH (03:15)
[2022-02-06] MEDS ORDERED: morphine CARPU-JECT 4 MG/1 ML DISP.SYRIN IVPUSH PRN (03:16)
[2022-02-06] MEDS ORDERED: ACETAMINOPHEN INJECTION 100 ML IVPB ONE ×2 (04:33→23:38)
[2022-02-06] MEDS: ACETAMINOPHEN 1000 MG/100 ML BAG IVPB PRN ×2 (04:37→23:53)
[2022-02-06] MEDS ORDERED: morphine SULFATE 4 MG/ML VIAL IVPUSH PRN (04:39)
[2022-02-06] MEDS ORDERED: LORazepam 1 MG TABLET PO PRN (05:34)
[2022-02-06] MEDS: SODIUM CHLORIDE 1,000 ML IV SCH (06:01)
[2022-02-06] MEDS ORDERED: FOLIC ACID INJECTION - 1 MG, THIAMINE HCL 100 MG, MULTIVIT INJECTION ADULT 10 ML in SOD... IVPB ONE (07:30)
[2022-02-06] MEDS ORDERED: PIPERACILLIN/TAZOB 4.5 GM 4.5 GM in DEXTROSE 5%-WATER 100 ML IVPB SCH (09:00)
[2022-02-06] MEDS ORDERED: THIAMINE HCL 100 MG TABLET (FP) ONE (09:03)
[2022-02-06] MEDS ORDERED: NICOTINE 7 MG/24 HOURS TOPICAL PATCH TD ONE (09:04)
[2022-02-06] MEDS ORDERED: FOLIC ACID 1 MG TABLET (FP) ONE (09:04)
[2022-02-06] MEDS ORDERED: VANCOMYCIN/WATER FOR INJ (PEG) 1,000 MG/200 ML BAG IVPB ONE ×2 (09:04→21:04)
[2022-02-06] MEDS ORDERED: AZITHROMYCIN IVPB 500 MG/250 ML BAG IVPB ONE ×2 (09:04→10:00)
[2022-02-06] MEDS ORDERED: PIPERACILLIN/TAZOB 4.5 GM 4.5 GM/100 ML BAG IVPB ONE ×3 (09:04→20:30)
[2022-02-06] MEDS: FOLIC ACID 1 MG TABLET (FP) PO SCH (09:31)
[2022-02-06] MEDS: ENOXAPARIN NA (PORCINE) 40 MG/0.4 ML DISP.SYRIN SQ SCH (09:31)
[2022-02-06] MEDS: NICOTINE 7 MG/24 HOURS TOPICAL PATCH TD SCH (09:32)
[2022-02-06] MEDS: THIAMINE HCL 100 MG TABLET (FP) PO SCH (09:32)
[2022-02-06 09:43] LABS: BASO % 0.2 % (0-2.0); HEMATOCRIT 27.4 % (35.4-49); HEMOGLOBIN 8.8 GM/dL (11.7-16.9); LYMPH % 8.1 % (8-40); MCH 31.2 pg (25.7-33.7); MEAN CELL VOLUME 97.4 fl (80-96); MEAN PLT VOLUME 7.7 fl (7.5-11.1); MONO % 5.6 % (3.8-10.2); NEUT % 86.1 % (42.8-82.8); PLATELET COUNT 246 10^3/uL (134-434); RBC 2.81 M/mm3 (4.00-5.60); RDW 14.4 % (11.9-15.9)
[2022-02-06 09:56] LABS: BLOOD UREA NITROGEN 10.2 mg/dL (7-18); CALCIUM 8.4 mg/dL (8.5-10.1); MAGNESIUM 1.8 mg/dL (1.8-2.4)
[2022-02-06 09:59] LABS: CREATININE 0.6 mg/dL (0.55-1.3); PHOSPHOROUS 3.8 mg/dL (2.5-4.9)
[2022-02-06 10:00] LABS: IRON SERUM 13 ug/dL (50-175)
[2022-02-06] MEDS ORDERED: VANCOMYCIN/WATER FOR INJ (PEG) 1,000 MG/200 ML BAG IVPB SCH (10:00)
[2022-02-06] MEDS ORDERED: VANCOMYCIN 1 GM in D5W (PRE-DOCKED) 1,000 MG/250 ML IVPB SCH (10:00)
[2022-02-06 10:01] LABS: BILIRUBIN,TOTAL 0.9 mg/dL (0.2-1); TOT PROT 6.8 g/dl (6.4-8.2); TOTAL IRON BINDING CAPACITY 303 ug/dL (250-450)
[2022-02-06 11:19] LABS: ANISOCYTOSIS 0; HELMET CELLS 0; HOWELL-JOLLY BODIES 0; MACROCYTOSIS 0; OVALOCYTE 0; ROULEAU 0; SICKELED CELLS 0; TARGET CELLS 0; TEAR DROP CELLS 0; TOXIC GRANULATION 0
[2022-02-06] MEDS ORDERED: LORazepam 1 MG TABLET ONE ×3 (11:34→23:37)
[2022-02-06] MEDS: LORazepam 1 MG TABLET PO SCH ×3 (11:35→23:53)
[2022-02-06] MEDS: PIPERACILLIN/TAZOB 4.5 GM 4.5 GM in DEXTROSE 5%-WATER 100 ML IVPB SCH ×2 (15:19→20:57)
[2022-02-06] MEDS ORDERED: ALBUTEROL SO4 HFA INHALER IH ONE ×2 (17:17→17:25)
[2022-02-06] MEDS: VANCOMYCIN 1 GRAM (PRE-DOCKED) 1,000 MG/250 ML BAG IVPB SCH (22:22)
[2022-02-07 03:59] VITALS: BMI 16.4
[2022-02-07] MEDS: PIPERACILLIN/TAZOB 4.5 GM 4.5 GM in DEXTROSE 5%-WATER 100 ML IVPB SCH ×4 (04:07→21:37)
[2022-02-07] MEDS: SODIUM CHLORIDE 1,000 ML IV SCH ×2 (04:07→05:47)
[2022-02-07] MEDS: LORazepam 1 MG TABLET PO SCH ×4 (05:56→22:30)
[2022-02-07] MEDS: ENOXAPARIN NA (PORCINE) 40 MG/0.4 ML DISP.SYRIN SQ SCH (09:38)
[2022-02-07] MEDS: FOLIC ACID 1 MG TABLET (FP) PO SCH (09:38)
[2022-02-07] MEDS: THIAMINE HCL 100 MG TABLET (FP) PO SCH (09:38)
[2022-02-07] MEDS: NICOTINE 7 MG/24 HOURS TOPICAL PATCH TD SCH (09:38)
[2022-02-07] MEDS ORDERED: VANCOMYCIN/WATER FOR INJ (PEG) 1,000 MG/250 ML BAG IVPB SCH (10:22)
[2022-02-07] MEDS: AZITHROMYCIN IVPB 250 MG in DEXTROSE 5%-WATER - 250 ML IVPB SCH (11:12)
[2022-02-07] MEDS: VANCOMYCIN/WATER FOR INJ (PEG) 1,000 MG/200 ML BAG IVPB SCH ×2 (11:12→22:31)
[2022-02-07] MEDS: VANCOMYCIN 1 GRAM (PRE-DOCKED) 1,000 MG/250 ML BAG IVPB SCH (11:14)
[2022-02-07] MEDS ORDERED: methylPREDNISolone NA SUCC 40 MG/1 ML VIAL IVPUSH ONE (13:49)
[2022-02-07] MEDS: methylPREDNISolone NA SUCC 40 MG/1 ML VIAL IVPUSH SCH ×2 (14:29→17:06)
[2022-02-07] MEDS: BUDESONIDE/FORMETEROL FUMARATE 160/4.5 mcg INHALER IH SCH ×2 (14:35→22:35)
[2022-02-07] MEDS: methaDONE HCL 40 MG DISPERSABLE TABLET PO SCH (18:21)
[2022-02-08] MEDS: methylPREDNISolone NA SUCC 40 MG/1 ML VIAL IVPUSH SCH ×3 (03:00→17:03)
[2022-02-08] MEDS: PIPERACILLIN/TAZOB 4.5 GM 4.5 GM in DEXTROSE 5%-WATER 100 ML IVPB SCH ×2 (03:00→08:34)
[2022-02-08] MEDS: LORazepam 1 MG TABLET PO SCH ×4 (04:41→23:20)
[2022-02-08] MEDS: methaDONE HCL 40 MG DISPERSABLE TABLET PO SCH (05:50)
[2022-02-08] MEDS: SODIUM CHLORIDE 1,000 ML IV SCH ×2 (05:50→21:48)
[2022-02-08] MEDS: THIAMINE HCL 100 MG TABLET (FP) PO SCH (11:41)
[2022-02-08] MEDS: ENOXAPARIN NA (PORCINE) 40 MG/0.4 ML DISP.SYRIN SQ SCH (11:41)
[2022-02-08] MEDS: NICOTINE 7 MG/24 HOURS TOPICAL PATCH TD SCH (11:42)
[2022-02-08] MEDS: AZITHROMYCIN IVPB 250 MG in DEXTROSE 5%-WATER - 250 ML IVPB SCH (11:42)
[2022-02-08] MEDS: FOLIC ACID 1 MG TABLET (FP) PO SCH (11:42)
[2022-02-08] MEDS: VANCOMYCIN/WATER FOR INJ (PEG) 1,000 MG/200 ML BAG IVPB SCH (11:42)
[2022-02-08] MEDS: BUDESONIDE/FORMETEROL FUMARATE 160/4.5 mcg INHALER IH SCH ×2 (11:43→21:44)
[2022-02-08] MEDS: ALBUTEROL SO4 2.5/IPRATROPIUM 0.5 INH SOL 3 ML VIAL.NEB. NEB SCH ×3 (11:45→19:57)
[2022-02-08 12:07] LABS: INR 1.24 (0.83-1.09); PROTHROMBIN TIME (PATIENT) 14.3 SEC (9.7-13.0)
[2022-02-08 12:08] LABS: BASO % 0.1 % (0-2.0); HEMATOCRIT 22.6 % (35.4-49); HEMOGLOBIN 7.3 GM/dL (11.7-16.9); LYMPH % 11.7 % (8-40); MCH 31.3 pg (25.7-33.7); MCHC 32.5 g/dl (32.0-35.9); MEAN CELL VOLUME 96.3 fl (80-96); MEAN PLT VOLUME 7.2 fl (7.5-11.1); MONO % 5.7 % (3.8-10.2); NEUT % 82.5 % (42.8-82.8); PLATELET COUNT 227 10^3/uL (134-434); RBC 2.34 M/mm3 (4.00-5.60); RDW 14.3 % (11.9-15.9); WHITE BLOOD COUNT 11.8 K/mm3 (4.0-10.0)
[2022-02-08 12:24] LABS: BLOOD UREA NITROGEN 11.3 mg/dL (7-18); CALCIUM 8.1 mg/dL (8.5-10.1)
[2022-02-08 12:25] LABS: ALBUMIN 1.8 g/dl (3.4-5.0); MAGNESIUM 2.1 mg/dL (1.8-2.4)
[2022-02-08 12:27] LABS: CREATININE 0.5 mg/dL (0.55-1.3)
[2022-02-08 12:29] LABS: BILIRUBIN,TOTAL 0.4 mg/dL (0.2-1); TOT PROT 6.4 g/dl (6.4-8.2)
[2022-02-08] MEDS ORDERED: POTASSIUM CHLORIDE TABS 20 MEQ TABLET.ER (FP) PO ONE (12:33)
[2022-02-08] MEDS: CEFAZOLIN SODIUM 2 GM in DEXTROSE 5%-WATER 100 ML IVPB SCH (17:53)
[2022-02-09] MEDS ORDERED: LORazepam 0.5 MG TABLET PO PRN
[2022-02-09] MEDS: CEFAZOLIN SODIUM 2 GM in DEXTROSE 5%-WATER 100 ML IVPB SCH ×3 (01:17→17:45)
[2022-02-09] MEDS: methylPREDNISolone NA SUCC 40 MG/1 ML VIAL IVPUSH SCH ×3 (01:17→18:07)
[2022-02-09] MEDS: LORazepam 0.5 MG TABLET PO SCH ×4 (05:30→22:43)
[2022-02-09] MEDS: methaDONE HCL 40 MG DISPERSABLE TABLET PO SCH (06:13)
[2022-02-09] MEDS: SODIUM CHLORIDE 1,000 ML IV SCH ×2 (06:13→12:39)
[2022-02-09] MEDS: ALBUTEROL SO4 2.5/IPRATROPIUM 0.5 INH SOL 3 ML VIAL.NEB. NEB SCH ×4 (07:42→20:05)
[2022-02-09] MEDS: ENOXAPARIN NA (PORCINE) 40 MG/0.4 ML DISP.SYRIN SQ SCH (11:04)
[2022-02-09] MEDS: THIAMINE HCL 100 MG TABLET (FP) PO SCH (11:05)
[2022-02-09] MEDS: FOLIC ACID 1 MG TABLET (FP) PO SCH (11:05)
[2022-02-09] MEDS: NICOTINE 7 MG/24 HOURS TOPICAL PATCH TD SCH (11:05)
[2022-02-09] MEDS: BUDESONIDE/FORMETEROL FUMARATE 160/4.5 mcg INHALER IH SCH ×2 (11:06→21:20)
[2022-02-09 16:30] LABS: BASO % 0.1 % (0-2.0); HEMOGLOBIN 7.5 GM/dL (11.7-16.9); LYMPH % 6.4 % (8-40); MCH 31.3 pg (25.7-33.7); MCHC 32.8 g/dl (32.0-35.9); MEAN CELL VOLUME 95.6 fl (80-96); MEAN PLT VOLUME 7.1 fl (7.5-11.1); MONO % 3.9 % (3.8-10.2); NEUT % 89.6 % (42.8-82.8); PLATELET COUNT 233 10^3/uL (134-434); RDW 14.5 % (11.9-15.9); WHITE BLOOD COUNT 12.5 K/mm3 (4.0-10.0)
[2022-02-09 16:34] LABS: INR 1.17 (0.83-1.09); PROTHROMBIN TIME (PATIENT) 13.5 SEC (9.7-13.0)
[2022-02-09 16:47] LABS: CALCIUM 8.7 mg/dL (8.5-10.1)
[2022-02-09 16:48] LABS: BLOOD UREA NITROGEN 16.1 mg/dL (7-18); MAGNESIUM 1.8 mg/dL (1.8-2.4)
[2022-02-09 16:51] LABS: CREATININE 0.5 mg/dL (0.55-1.3)
[2022-02-09 16:53] LABS: BILIRUBIN,TOTAL 0.2 mg/dL (0.2-1); TOT PROT 6.8 g/dl (6.4-8.2)
[2022-02-09 17:00] LABS: ALBUMIN 2.1 g/dl (3.4-5.0)
[2022-02-10] MEDS: methylPREDNISolone NA SUCC 40 MG/1 ML VIAL IVPUSH SCH ×3 (01:41→21:21)
[2022-02-10] MEDS: CEFAZOLIN SODIUM 2 GM in DEXTROSE 5%-WATER 100 ML IVPB SCH ×3 (01:41→17:00)
[2022-02-10] MEDS ORDERED: LORazepam 0.5 MG TABLET PO ONE (05:00)
[2022-02-10] MEDS: SODIUM CHLORIDE 1,000 ML IV SCH (05:31)
[2022-02-10] MEDS: methaDONE HCL 40 MG DISPERSABLE TABLET PO SCH (06:12)
[2022-02-10] MEDS: ALBUTEROL SO4 2.5/IPRATROPIUM 0.5 INH SOL 3 ML VIAL.NEB. NEB SCH ×4 (08:23→20:10)
[2022-02-10] MEDS: THIAMINE HCL 100 MG TABLET (FP) PO SCH (09:25)
[2022-02-10] MEDS: FOLIC ACID 1 MG TABLET (FP) PO SCH (09:25)
[2022-02-10] MEDS: ENOXAPARIN NA (PORCINE) 40 MG/0.4 ML DISP.SYRIN SQ SCH (09:25)
[2022-02-10] MEDS: BUDESONIDE/FORMETEROL FUMARATE 160/4.5 mcg INHALER IH SCH ×2 (09:26→21:21)
[2022-02-10] MEDS: NICOTINE 7 MG/24 HOURS TOPICAL PATCH TD SCH (09:27)
[2022-02-10 10:57] LABS: INR 1.15 (0.83-1.09); PROTHROMBIN TIME (PATIENT) 13.2 SEC (9.7-13.0)
[2022-02-10 11:00] LABS: BASO % 0.3 % (0-2.0); HEMATOCRIT 22.8 % (35.4-49); HEMOGLOBIN 7.6 GM/dL (11.7-16.9); LYMPH % 11.5 % (8-40); MCHC 33.4 g/dl (32.0-35.9); MEAN CELL VOLUME 95.8 fl (80-96); MEAN PLT VOLUME 7.7 fl (7.5-11.1); MONO % 7.7 % (3.8-10.2); NEUT % 80.5 % (42.8-82.8); PLATELET COUNT 238 10^3/uL (134-434); RBC 2.38 M/mm3 (4.00-5.60); RDW 14.7 % (11.9-15.9); WHITE BLOOD COUNT 10.2 K/mm3 (4.0-10.0)
[2022-02-10 11:16] LABS: CALCIUM 8.3 mg/dL (8.5-10.1)
[2022-02-10 11:17] LABS: ALBUMIN 2.1 g/dl (3.4-5.0); BLOOD UREA NITROGEN 16.7 mg/dL (7-18); MAGNESIUM 1.9 mg/dL (1.8-2.4)
[2022-02-10 11:20] LABS: CREATININE 0.6 mg/dL (0.55-1.3)
[2022-02-10 11:22] LABS: BILIRUBIN,TOTAL 0.2 mg/dL (0.2-1); TOT PROT 6.6 g/dl (6.4-8.2)
[2022-02-11] MEDS: ACETAMINOPHEN 1000 MG/100 ML BAG IVPB PRN (00:24)
[2022-02-11] MEDS: CEFAZOLIN SODIUM 2 GM in DEXTROSE 5%-WATER 100 ML IVPB SCH ×3 (01:50→17:43)
[2022-02-11] MEDS: methaDONE HCL 40 MG DISPERSABLE TABLET PO SCH (05:48)
[2022-02-11] MEDS: ALBUTEROL SO4 2.5/IPRATROPIUM 0.5 INH SOL 3 ML VIAL.NEB. NEB SCH ×4 (07:50→20:10)
[2022-02-11] MEDS: NICOTINE 7 MG/24 HOURS TOPICAL PATCH TD SCH (09:35)
[2022-02-11] MEDS: ENOXAPARIN NA (PORCINE) 40 MG/0.4 ML DISP.SYRIN SQ SCH (09:35)
[2022-02-11] MEDS: FOLIC ACID 1 MG TABLET (FP) PO SCH (09:35)
[2022-02-11] MEDS: methylPREDNISolone NA SUCC 40 MG/1 ML VIAL IVPUSH SCH (09:35)
[2022-02-11] MEDS: BUDESONIDE/FORMETEROL FUMARATE 160/4.5 mcg INHALER IH SCH ×2 (09:35→21:13)
[2022-02-11] MEDS: THIAMINE HCL 100 MG TABLET (FP) PO SCH (09:35)
[2022-02-11 10:26] LABS: HEMATOCRIT 24.6 % (35.4-49); HEMOGLOBIN 7.9 GM/dL (11.7-16.9); MCH 30.8 pg (25.7-33.7); MCHC 32.1 g/dl (32.0-35.9); MEAN CELL VOLUME 95.9 fl (80-96); MEAN PLT VOLUME 7.6 fl (7.5-11.1); PLATELET COUNT 280 10^3/uL (134-434); RBC 2.56 M/mm3 (4.00-5.60); RDW 15.1 % (11.9-15.9); WHITE BLOOD COUNT 12.7 K/mm3 (4.0-10.0)
[2022-02-11 10:31] LABS: INR 1.21 (0.83-1.09); PROTHROMBIN TIME (PATIENT) 13.9 SEC (9.7-13.0)
[2022-02-11 10:52] LABS: ALBUMIN 2.2 g/dl (3.4-5.0); CALCIUM 8.5 mg/dL (8.5-10.1)
[2022-02-11 10:53] LABS: BLOOD UREA NITROGEN 14.6 mg/dL (7-18)
[2022-02-11 10:55] LABS: CREATININE 0.6 mg/dL (0.55-1.3)
[2022-02-11 10:57] LABS: BILIRUBIN,TOTAL 0.2 mg/dL (0.2-1); TOT PROT 6.8 g/dl (6.4-8.2)
[2022-02-11 11:11] LABS: ANISOCYTOSIS 1+; MACROCYTOSIS 1+
[2022-02-12] MEDS: CEFAZOLIN SODIUM 2 GM in DEXTROSE 5%-WATER 100 ML IVPB SCH ×3 (01:34→17:45)
[2022-02-12] MEDS: methaDONE HCL 40 MG DISPERSABLE TABLET PO SCH (06:37)
[2022-02-12] MEDS: ALBUTEROL SO4 2.5/IPRATROPIUM 0.5 INH SOL 3 ML VIAL.NEB. NEB SCH ×4 (07:28→21:10)
[2022-02-12] MEDS ORDERED: methylPREDNISolone NA SUCC 40 MG/1 ML VIAL IVPUSH SCH (10:00)
[2022-02-12] MEDS ORDERED: predniSONE 20 MG TABLET (UD) PO SCH ×2 (10:00)
[2022-02-12] MEDS: NICOTINE 7 MG/24 HOURS TOPICAL PATCH TD SCH (10:09)
[2022-02-12] MEDS: ENOXAPARIN NA (PORCINE) 40 MG/0.4 ML DISP.SYRIN SQ SCH (10:09)
[2022-02-12] MEDS: FOLIC ACID 1 MG TABLET (FP) PO SCH (10:10)
[2022-02-12] MEDS: THIAMINE HCL 100 MG TABLET (FP) PO SCH (10:11)
[2022-02-12] MEDS: BUDESONIDE/FORMETEROL FUMARATE 160/4.5 mcg INHALER IH SCH ×2 (10:11→22:17)
[2022-02-12 12:51] VITALS: RESP 18
[2022-02-13] MEDS: CEFAZOLIN SODIUM 2 GM in DEXTROSE 5%-WATER 100 ML IVPB SCH (01:47)
[2022-02-13 06:03] VITALS: BP 148/94; PULSE 85; TEMP 97.6
[2022-02-13] MEDS: methaDONE HCL 40 MG DISPERSABLE TABLET PO SCH (06:03)
[2022-02-14] MEDS ORDERED: predniSONE 10 MG TABLET (UD) PO SCH (10:00)
[2022-02-16] MEDS ORDERED: predniSONE 20 MG TABLET (UD) PO SCH (10:00)
[2022-02-18] MEDS ORDERED: predniSONE 10 MG TABLET (UD) PO SCH (10:00)
== END 2022-02-13 06:25 | DRG 721 ==
LOC: JER 21:01 → JERBED 21:30 → J6S 02-07 03:31
PROVIDERS: ADMIT Internal Medicine; ATTEND Nurse Practitioner Acute Care
PROC: HZ2ZZZZ Detoxification Services for Substance Abuse Treatment (ICD-10-PCS; principal; 2022-02-06)
DX: T81.44XA Sepsis following a procedure, initial encounter (principal); I10 Essential (primary) hypertension; F31.9 Bipolar disorder, unspecified; D64.9 Anemia, unspecified; F11.20 Opioid dependence, uncomplicated; F10.239 Alcohol dependence with withdrawal, unspecified; L03.113 Cellulitis of right upper limb; R50.9 Fever, unspecified; J45.901 Unspecified asthma with (acute) exacerbation; L02.413 Cutaneous abscess of right upper limb; F41.8 Other specified anxiety disorders; A41.01 Sepsis due to Methicillin susceptible Staphylococcus aureus; Y83.9 Surgical procedure, unspecified as the cause of abnormal reaction of the patient, or of later complication, without mention of misadventure at the time of the procedure
CPT/HCPCS: 0241U-QW; 36415; 36569; 71045-TC-FY; 73060-TC-RT-FY; 73070-TC-RT-FY; 73090-TC-RT-FY; 73201-TC-RT; 77001-TC-FY; 80053; 80307; 81003; 82550; 82553; 82728; 82803; 83540; 83550; 83605; 83735; 84100; 84466; 85025; 85045; 85610; 85730; 86140; 86780; 86850; 86900; 86901; 87040; 87070; 87086; 87186; 87205; 87899; 93005; 93010; 93306-TC; 94640; 97116-GP; 97162-GP; 99285-25; C1751; C9803-CS; Q9967; U0003; U0005

== ENCOUNTER 2022-02-14 15:03 | Inpatient (IN) | payer OTHER ==
[2022-02-14 15:37] VITALS: BMI 24.3
[2022-02-14] MEDS ORDERED: CEFAZOLIN 2 GM in DEXTROSE 5%-WATER - 50 ML IVPB ONE (19:17)
[2022-02-14] MEDS ORDERED: methaDONE HCL 10 MG TABLET (FOR DETOX USE ONLY) PO ONE (19:19)
[2022-02-14] MEDS ORDERED: ceFAZolin SODIUM 1 GM VIAL ONE (19:40)
[2022-02-14] MEDS ORDERED: methaDONE HCL 40 MG DISPERSABLE TABLET ONE (19:40)
[2022-02-14 21:08] LABS: HEMATOCRIT 24.5 % (35.4-49); MCH 30.8 pg (25.7-33.7); MCHC 32.7 g/dl (32.0-35.9); MEAN CELL VOLUME 94.2 fl (80-96); MEAN PLT VOLUME 6.6 fl (7.5-11.1); PLATELET COUNT 254 10^3/uL (134-434); RDW 15.6 % (11.9-15.9); WHITE BLOOD COUNT 8.4 K/mm3 (4.0-10.0)
[2022-02-14 21:22] LABS: ALBUMIN 2.3 g/dl (3.4-5.0); CALCIUM 8.5 mg/dL (8.5-10.1)
[2022-02-14 21:23] LABS: BLOOD UREA NITROGEN 14.4 mg/dL (7-18)
[2022-02-14 21:26] LABS: CREATININE 0.7 mg/dL (0.55-1.3)
[2022-02-14 21:27] LABS: BILIRUBIN,TOTAL 0.2 mg/dL (0.2-1); TOT PROT 6.8 g/dl (6.4-8.2)
[2022-02-14 22:24] LABS: ANISOCYTOSIS 1+; MACROCYTOSIS 0; PLATELET ESTIMATE NORMAL
[2022-02-15 00:17] LABS: URINE APPEARANCE CLEAR; URINE BILIRUBIN NEGATIVE (NEGATIVE); URINE COLOR YELLOW; URINE GLUCOSE (UA) NEGATIVE (NEGATIVE); URINE KETONE NEGATIVE (NEGATIVE); URINE LEUK ESTERASE NEGATIVE (NEGATIVE); URINE NITRITE NEGATIVE (NEGATIVE); URINE PROTEIN NEGATIVE (NEGATIVE); URINE UROBILINOGEN 0.2 mg/dL (0.2-1.0)
[2022-02-15] MEDS ORDERED: LORazepam 1 MG TABLET PO PRN ×2 (00:56→01:30)
[2022-02-15] MEDS ORDERED: predniSONE 10 MG TABLET (UD) PO ONE (01:34)
[2022-02-15] MEDS ORDERED: predniSONE 10 MG TABLET (UD) ONE (02:43)
[2022-02-15] MEDS: CEFAZOLIN 2 GM in DEXTROSE 5%-WATER - 50 ML IVPB SCH ×2 (02:45→10:50)
[2022-02-15 08:21] LABS: HEMATOCRIT 25.4 % (35.4-49); HEMOGLOBIN 8.3 GM/dL (11.7-16.9); MCH 31.2 pg (25.7-33.7); MCHC 32.8 g/dl (32.0-35.9); MEAN PLT VOLUME 7.4 fl (7.5-11.1); PLATELET COUNT 254 10^3/uL (134-434); RBC 2.67 M/mm3 (4.00-5.60); RDW 15.5 % (11.9-15.9); WHITE BLOOD COUNT 9.2 K/mm3 (4.0-10.0)
[2022-02-15 08:52] LABS: ALBUMIN 2.6 g/dl (3.4-5.0); BLOOD UREA NITROGEN 16.8 mg/dL (7-18); CALCIUM 8.7 mg/dL (8.5-10.1)
[2022-02-15 08:55] LABS: CREATININE 0.8 mg/dL (0.55-1.3); PHOSPHOROUS 3.1 mg/dL (2.5-4.9)
[2022-02-15 08:57] LABS: BILIRUBIN,TOTAL 0.3 mg/dL (0.2-1); TOT PROT 7.2 g/dl (6.4-8.2)
[2022-02-15] MEDS ORDERED: NICOTINE 7 MG/24 HOURS TOPICAL PATCH TD ONE (09:10)
[2022-02-15] MEDS ORDERED: ENOXAPARIN NA (PORCINE) 40 MG/0.4 ML DISP.SYRIN SQ ONE (09:10)
[2022-02-15 09:12] LABS: ANISOCYTOSIS 1+; MACROCYTOSIS 1+
[2022-02-15] MEDS ORDERED: ENOXAPARIN NA (PORCINE) 40 MG/0.4 ML DISP.SYRIN SQ SCH (10:00)
[2022-02-15] MEDS ORDERED: NICOTINE 7 MG/24 HOURS TOPICAL PATCH TD SCH (10:00)
[2022-02-15] MEDS ORDERED: ceFAZolin SODIUM 1 GM VIAL ONE (10:08)
[2022-02-15] MEDS ORDERED: ALTEPLASE (CATHFLO) 2 MG/2 ML VIAL CVP ONE (10:30)
[2022-02-15] MEDS ORDERED: methaDONE HCL 40 MG DISPERSABLE TABLET PO ONE (13:58)
[2022-02-15] MEDS ORDERED: methaDONE HCL 40 MG DISPERSABLE TABLET ONE (14:42)
[2022-02-15 16:42] VITALS: BP 128/76; PULSE 88; RESP 14; TEMP 98.3
[2022-02-16] MEDS ORDERED: methaDONE HCL 40 MG DISPERSABLE TABLET PO SCH (06:00)
[2022-02-16] MEDS ORDERED: predniSONE 20 MG TABLET (UD) PO ONE (08:00)
[2022-02-17] MEDS ORDERED: predniSONE 10 MG TABLET (UD) PO ONE (08:00)
[2022-02-18] MEDS ORDERED: predniSONE 5 MG TABLET (UD) PO ONE (08:00)
== END 2022-02-15 16:40 | DRG 720 ==
LOC: JER 15:03 → JERBED 21:37 → OBSVTOIN 02-15 00:42
PROVIDERS: ADMIT Internal Medicine; ATTEND Nurse Practitioner Acute Care
PROC: HZ2ZZZZ Detoxification Services for Substance Abuse Treatment (ICD-10-PCS; principal; 2022-02-14)
DX: A41.89 Other specified sepsis (principal); L03.113 Cellulitis of right upper limb; D64.9 Anemia, unspecified; I10 Essential (primary) hypertension; F17.210 Nicotine dependence, cigarettes, uncomplicated; F11.23 Opioid dependence with withdrawal; F10.239 Alcohol dependence with withdrawal, unspecified; R07.89 Other chest pain; J45.901 Unspecified asthma with (acute) exacerbation; F41.8 Other specified anxiety disorders; Z85.46 Personal history of malignant neoplasm of prostate
CPT/HCPCS: 36415; 71045-TC-FY; 80053; 81003; 83735; 84100; 84484; 85025; 93005; 93010; 99285-25; C9803-CS; G0378; J2997; U0003; U0005

== ENCOUNTER 2023-06-27 14:07 | Inpatient (IN) | payer OTHER ==
[2023-06-27 15:12] VITALS: BMI 20.9
[2023-06-27] MEDS ORDERED: POLYETHYLENE GLYCOL (HEALTHYLAX) 3350 17 GM PACKET PO PRN (20:11)
[2023-06-27] MEDS ORDERED: NALOXONE HCL (KLOXXADO) 8 MG SPRAY NS PRN (20:11)
[2023-06-27] MEDS ORDERED: guaiFENesin 600 MG TABLET.ER (FP) PO PRN (20:11)
[2023-06-27] MEDS ORDERED: NICOTINE POLACRILEX 2 MG GUM BUC PRN (20:11)
[2023-06-27] MEDS ORDERED: BENZOCAINE/MENTHOL (CHLORASEPTIC ) LOZENGE MM PRN (20:11)
[2023-06-27] MEDS ORDERED: MAG HYDROX/AL HYDROX/SIMETH 30 ML UNIT-DOSE CUP PO PRN (20:11)
[2023-06-27] MEDS ORDERED: ONDANSETRON *ODT* 4 MG TABLET SL PRN (20:11)
[2023-06-27] MEDS ORDERED: BISMUTH SUBSALICYLATE 524 MG/30 ML PO PRN (20:11)
[2023-06-27] MEDS ORDERED: BENZONATATE 200 MG CAPSULE PO PRN (20:11)
[2023-06-27] MEDS ORDERED: ACETAMINOPHEN 325 MG TABLET (FP) PO PRN (20:11)
[2023-06-27] MEDS ORDERED: MAGNESIUM HYDROX 2400MG/30ML ORAL SUSPENSION 30 ML CUP PO PRN (20:11)
[2023-06-27] MEDS ORDERED: LOPERAMIDE HCL 2 MG CAPSULE PO PRN (20:11)
[2023-06-27] MEDS ORDERED: NALOXONE HCL 0.4 MG/ML VIAL IM PRN (20:11)
[2023-06-27] MEDS ORDERED: IBUPROFEN 400 MG TABLET (FP) PO PRN (20:11)
[2023-06-27] MEDS: METOPROLOL TARTRATE 25 MG TABLET (FP) PO ONE (21:15)
[2023-06-27] MEDS: MELATONIN 5 MG TABLETS PO SCH (21:15)
[2023-06-27] MEDS: THIAMINE HCL 100 MG TABLET (FP) PO SCH (21:15)
[2023-06-27] MEDS ORDERED: ALBUTEROL SO4 HFA INHALER IH PRN (22:12)
[2023-06-28] MEDS: PRENATAL VITAMINS W/ FOLIC ACID TABLET (FP) PO SCH (10:32)
[2023-06-28] MEDS: NICOTINE 14 MG/24 HOURS TOPICAL PATCH TD SCH (10:32)
[2023-06-28] MEDS: BUPRENORPHINE/NALOXONE 8 MG/2 MG FILM PACKET SL SCH (10:36)
[2023-06-28] MEDS ORDERED: chlordiazePOXIDE HCL 25 MG CAPSULE PO PRN (10:55)
[2023-06-28] MEDS: chlordiazePOXIDE HCL 10 MG CAPSULE PO SCH (11:30)
[2023-06-28 13:07] LABS: HEMATOCRIT 29.8 % (35.4-49); HEMOGLOBIN 9.9 GM/dL (11.7-16.9); MCH 26.6 pg (25.7-33.7); MCHC 33.2 g/dl (32.0-35.9); MEAN PLT VOLUME 7.4 fl (7.5-11.1); PLATELET COUNT 148 10^3/uL (134-434); RBC 3.72 M/mm3 (4.00-5.60); WHITE BLOOD COUNT 6.2 K/mm3 (4.0-10.0)
[2023-06-28] MEDS: BUPRENORPHINE/NALOXONE 8 MG/2 MG FILM PACKET SL ONE (13:08)
[2023-06-28 13:12] LABS: CHLORIDE 97 mmol/L (98-107); POTASSIUM 3.4 mmol/L (3.5-5.1); SODIUM 137 mmol/L (136-145)
[2023-06-28 13:23] LABS: ALBUMIN 2.4 g/dl (3.4-5.0); ANION GAP 8 mmol/L (4-13); CO2 32 mmol/L (21-32); GLUCOSE,RANDOM 85 mg/dL (74-106)
[2023-06-28 13:26] LABS: CREATININE 0.5 mg/dL (0.55-1.3); SGOT/AST 21 U/L (15-37); SGPT/ALT 13 U/L (13-61)
[2023-06-28 13:27] LABS: BILIRUBIN,TOTAL 0.6 mg/dL (0.2-1)
[2023-06-28 13:28] LABS: TOT PROT 8.3 g/dl (6.4-8.2)
[2023-06-28 13:29] LABS: ALK PHOS 116 U/L (45-117)
[2023-06-28] MEDS: POTASSIUM CHLORIDE ORAL LIQUID 20 MEQ/15 ML PO ONE (15:50)
[2023-06-28] MEDS: chlordiazePOXIDE HCL 25 MG CAPSULE PO SCH (17:47)
[2023-06-28] MEDS: POTASSIUM CHLORIDE ORAL LIQUID 20 MEQ/15 ML PO SCH (22:35)
[2023-06-28] MEDS: MELATONIN 5 MG TABLETS PO SCH (22:35)
[2023-06-29] MEDS: VITAMINS A AND D TOPICAL OINTMENT TP SCH (00:59)
[2023-06-29 06:04] VITALS: RESP 16
[2023-06-29 09:10] VITALS: BP 145/84; PULSE 101; TEMP 97.9
[2023-06-29] MEDS: IBUPROFEN 600 MG TABLET (FP) PO PRN (10:12)
[2023-06-29 11:41] LABS: HEMATOCRIT 30.9 % (35.4-49); HEMOGLOBIN 9.8 GM/dL (11.7-16.9); MCH 25.9 pg (25.7-33.7); MCHC 31.6 g/dl (32.0-35.9); MEAN CELL VOLUME 82.1 fl (80-96); MEAN PLT VOLUME 7.6 fl (7.5-11.1); PLATELET COUNT 166 10^3/uL (134-434); RBC 3.77 M/mm3 (4.00-5.60); RDW 22.1 % (11.9-15.9); RETICULOCYTES 2.14 % (0.5-1.5); WHITE BLOOD COUNT 5.9 K/mm3 (4.0-10.0)
[2023-06-30] MEDS ORDERED: chlordiazePOXIDE HCL 25 MG CAPSULE PO SCH (05:00)
[2023-07-01] MEDS ORDERED: chlordiazePOXIDE HCL 10 MG CAPSULE PO PRN
[2023-07-01] MEDS ORDERED: chlordiazePOXIDE HCL 10 MG CAPSULE PO SCH (05:00)
[2023-07-02] MEDS ORDERED: chlordiazePOXIDE HCL 10 MG CAPSULE PO SCH (05:00)
[2023-07-03] MEDS ORDERED: chlordiazePOXIDE HCL 10 MG CAPSULE PO ONE (05:00)
== END 2023-06-29 13:40 | disposition left against medical advice (07) | DRG 770 ==
LOC: YASAS 14:07 → Y6N 20:29
PROVIDERS: ADMIT Allergy & Immunology; ATTEND Surgery
PROC: HZ2ZZZZ Detoxification Services for Substance Abuse Treatment (ICD-10-PCS; principal; 2023-06-27)
DX: F10.230 Alcohol dependence with withdrawal, uncomplicated (principal); F11.20 Opioid dependence, uncomplicated; F17.210 Nicotine dependence, cigarettes, uncomplicated; F19.282 Other psychoactive substance dependence with psychoactive substance-induced sleep disorder; F19.24 Other psychoactive substance dependence with psychoactive substance-induced mood disorder; D50.9 Iron deficiency anemia, unspecified; I10 Essential (primary) hypertension; J45.909 Unspecified asthma, uncomplicated; R76.11 Nonspecific reaction to tuberculin skin test without active tuberculosis; Z85.46 Personal history of malignant neoplasm of prostate; Z99.89 Dependence on other enabling machines and devices; Z28.310 Unvaccinated for COVID-19; Z28.9 Immunization not carried out for unspecified reason
CPT/HCPCS: 36415; 80053; 80305; 80307; 82607; 82746; 83540; 83550; 84132; 85027; 85045; 86780; 87811; 93005; 93010